=== PATIENT | male | born 1935 ===

== ENCOUNTER → 2019-08-16 | Outpatient (CLI) | payer OTHER | END | disposition home or self-care (01) | LOC: RX STUDY 09:36 | DX: R13.12 Dysphagia, oropharyngeal phase (principal) ==

== ENCOUNTER 2021-04-28 13:04 | Outpatient (CLI) | payer OTHER | END 2021-04-28 13:16 | disposition home or self-care (01) | LOC: TOM 13:04 | PROVIDERS: ATTEND Internal Medicine Infectious Disease | DX: I72.9 Aneurysm of unspecified site (principal) ==